=== PATIENT | female | born 1965 | race Caucasian/White ===

== ENCOUNTER 2021-05-08 15:25 | Emergency (ER) | payer BC, OTHER ==
[~2021-05-08] VITALS: Ht 165 cm; Wt 55.0 kg
[2021-05-08] MEDS ORDERED: LACTATED RINGERS 1,000 ML IV SCH (15:45)
--- NOTE | 2021-05-08 15:47 | ED General ---
General Stated Complaint: R SIDE PAIN Source of Information: Patient Exam Limitations: No Limitations History of Present Illness Date Seen by Provider: May 08, 2021 Time Seen by Provider: 15:45 Initial Comments To ER with reports of right lower quadrant abdominal pain onset this morning at 5 AM. No nausea or vomiting but has not had an appetite either. Last intake was coffee this morning, no food today. No fevers no chills and she has had 2 normal bowel movements today. She has a history of a "partial bowel obstruction" in the right lower abdomen secondary to a surgical procedure for cervical cancer at [facility] in [place] 10 to 15 years ago. Timing/Duration: 4-6 Hours Severity: Moderate Associated Systoms: No Nausea/Vomiting Allergies and Home Medications Allergies Coded Allergies: No Known Drug Allergies (Unverified , 05/08/21) Patient Home Medication List Home Medication List Reviewed: Yes Review of Systems Review of Systems Constitutional: see HPI EENTM: see HPI Respiratory: no symptoms reported Cardiovascular: no symptoms reported Gastrointestinal: abdominal pain Genitourinary: no symptoms reported Musculoskeletal: no symptoms reported Skin: no symptoms reported Psychiatric/Neurological: No Symptoms Reported Hematologic/Lymphatic: No Symptoms Reported Physical Exam Vital Signs Vital Signs - First Documented 05/08/21 15:30 Temp 36.0 Pulse 129 Resp 16 B/P (MAP) 160/84 (109) Pulse Ox 100 O2 Delivery Room Air Capillary Refill : Height, Weight, BMI Height: '" Weight: lbs. oz. kg; BMI Method: General Appearance: No Apparent Distress, WD/WN, Thin Eyes: Bilateral Eye Normal Inspection, Bilateral Eye PERRL, Bilateral Eye EOMI Neck: Full Range of Motion, Normal Inspection Respiratory: No Accessory Muscle Use, No Respiratory Distress Cardiovascular: Regular Rate, Rhythm, Normal Peripheral Pulses Gastrointestinal: Normal Bowel Sounds, Soft; No Abnormal Bowel Sounds, No Dis tended, No Guarding, No Hepatomegaly; Tenderness Extremity: Normal Capillary Refill, Normal Inspection Neurologic/Psychiatric: Alert, Oriented x3 Skin: Normal Color, Warm/Dry Progress/Results/Core Measures Suspected Sepsis SIRS Temperature: Pulse: Respiratory Rate: Laboratory Tests 05/08/21 15:40: White Blood Count 9.7 Blood Pressure / Mean: Laboratory Tests 05/08/21 15:40: Creatinine 0.84, Platelet Count 269, Total Bilirubin 0.7 Results/Orders Lab Results Laboratory Tests Test 05/08/21 15:40 05/08/21 15:41 Range/Units White Blood Count 9.7 4.3-11.0 10^3/uL Red Blood Count 3.86 3.80-5.11 10^6/uL Hemoglobin 12.3 11.5-16.0 g/dL Hematocrit 37 35-52 % Mean Corpuscular Volume 97 80-99 fL Mean Corpuscular Hemoglobin 32 25-34 pg Mean Corpuscular Hemoglobin Concent 33 32-36 g/dL Red Cell Distribution Width 12.8 10.0-14.5 % Platelet Count 269 130-400 10^3/uL Mean Platelet Volume 9.3 9.0-12.2 fL Immature Granulocyte % (Auto) 0 % Neutrophils (%) (Auto) 83 H 42-75 % Lymphocytes (%) (Auto) 9 L 12-44 % Monocytes (%) (Auto) 6 0-12 % Eosinophils (%) (Auto) 1 0-10 % Basophils (%) (Auto) 1 0-10 % Neutrophils # (Auto) 8.1 H 1.8-7.8 10^3/uL Lymphocytes # (Auto) 0.9 L 1.0-4.0 10^3/uL Monocytes # (Auto) 0.6 0.0-1.0 10^3/uL Eosinophils # (Auto) 0.1 0.0-0.3 10^3/uL Basophils # (Auto) 0.1 0.0-0.1 10^3/uL Immature Granulocyte # (Auto) 0.0 0.0-0.1 10^3/uL Sodium Level 144 135-145 MMOL/L Potassium Level 4.2 3.6-5.0 MMOL/L Chloride Level 107 98-107 MMOL/L Carbon Dioxide Level 29 21-32 MMOL/L Anion Gap 8 5-14 MMOL/L Blood Urea Nitrogen 12 7-18 MG/DL Creatinine 0.84 0.60-1.30 MG/DL Estimat Glomerular Filtration Rate 70 BUN/Creatinine Ratio 14 Glucose Level 105 70-105 MG/DL Calcium Level 9.6 8.5-10.1 MG/DL Corrected Calcium 9.5 8.5-10.1 MG/DL Total Bilirubin 0.7 0.1-1.0 MG/DL Aspartate Amino Transf (AST/SGOT) 13 5-34 U/L Alanine Aminotransferase (ALT/SGPT) 13 0-55 U/L Alkaline Phosphatase 57 40-136 U/L Total Protein 6.7 6.4-8.2 GM/DL Albumin 4.1 3.2-4.5 GM/DL Urine Color YELLOW Urine Clarity CLEAR Urine pH 5.0 5-9 Urine Specific [place] 1.010 L 1.016-1.022 Urine Protein NEGATIVE NEGATIVE Urine Glucose (UA) NEGATIVE NEGATIVE Urine Ketones NEGATIVE NEGATIVE Urine Nitrite NEGATIVE NEGATIVE Urine Bilirubin NEGATIVE NEGATIVE Urine Urobilinogen 0.2 < = 1.0 MG/DL Urine Leukocyte Esterase NEGATIVE NEGATIVE Urine RBC (Auto) TRACE-I NEGATIVE Urine RBC 0-2 /HPF Urine WBC NONE /HPF Urine Crystals PRESENT H /LPF Urine Amorphous Sediment RARE SCOTT URATES H /LPF Urine Bacteria NEGATIVE /HPF Urine Casts NONE /LPF Urine Mucus NEGATIVE /LPF Urine Culture Indicated NO My Orders Orders - NATALEE ALVAERNGA LINEMAN APPRENTICE Cbc With Automated Diff (05/08/21 15:41) Comprehensive Metabolic Panel (05/08/21 15:41) Ed Iv/Invasive Line Start (05/08/21 15:41) Ct Abd/Pelv W (Appendicitis) (05/08/21 15:41) Lactated Ringers (Lr 1000 Ml Iv Solution (05/08/21 15:45) Ua Culture If Indicated (05/08/21 15:43) Iohexol Injection (Omnipaque 350 Mg/Ml 1 (05/08/21 16:15) Received Contrast (Hold Metformin- Contr (05/08/21 16:15) Sodium Chloride Flush (Catheter Flush Sy (05/08/21 16:15) Ns (Ivpb) (Sodium Chloride 0.9% Ivpb Bag (05/08/21 16:15) Ketorolac Injection (Toradol Injection) (05/08/21 17:00) Medications Given in ED Current Medications Medications Dose Ordered Sig/Mely Route Start Time Stop Time Status Last Admin Dose Admin Iohexol 100 ml ONCE ONCE IV 05/08/21 16:15 05/08/21 16:16 DC 05/08/21 16:43 69 ML Ketorolac Tromethamine 15 mg ONCE ONCE IVP 05/08/21 17:00 05/08/21 17:01 DC 05/08/21 17:15 15 MG Sodium Chloride 10 ml NEEDED PRN IV 05/08/21 16:15 05/08/21 16:43 10 ML Sodium Chloride 100 ml ONCE ONCE IV 05/08/21 16:15 05/08/21 16:16 DC 05/08/21 16:43 80 ML Vital Signs/I&O 05/08/21 15:30 Temp 36.0 Pulse 129 Resp 16 B/P (MAP) 160/84 (109) Pulse Ox 100 O2 Delivery Room Air Capillary Refill : Departure Communication (Admissions) NAME: LIZ GONZALEZ [facility] REC#: [id number] PT STATUS: REG ER : 1965 PHYSICIAN: NATALEE ALVARENGA LINEMAN APPRENTICE ADMIT DATE: 05/08/21/ER Signed Date of Exam:05/08/21 CT ABD/PELV W (APPENDICITIS) EXAMINATION: CT abdomen and pelvis with intravenous contrast. TECHNIQUE: Multiple contiguous axial images were obtained through the abdomen and pelvis after the uneventful administration of intravenous contrast. All CT scans use one or more of the following dose optimizing techniques: automated exposure control, MA and/or KvP adjustment based on patient size and exam type or iterative reconstruction. HISTORY: Right lower quadrant pain. COMPARISON: None available. FINDINGS: Lung bases: The lung bases are clear. Solid organs: The liver is normal without focal lesion. The gallbladder is surgically absent. Mild biliary ductal dilatation is likely secondary to reservoir effect from prior cholecystectomy. Pancreas is normal. Spleen is normal. Adrenal glands are normal. The kidneys are normal without hydronephrosis. Bowel: The stomach and small bowel are normal without obstruction. The colon and appendix are normal. Peritoneum: There is a mild amount of free fluid within the pelvis. No suspicious lymphadenopathy. Vasculature: Calcification of the aorta without aneurysm. Musculoskeletal: Degenerative changes of the spine without suspicious osseous lesion or compression fracture. Pelvis: The uterus is surgically absent. No adnexal mass. The urinary bladder is normal. IMPRESSION: 1. No acute abnormality in the abdomen or pelvis. Normal-appearing appendix. 2. There is a mild amount of nonspecific free fluid in the pelvis. Dictated by: Dictated on workstation # [id number] Dict: 05/08/21 1644 Trans: 05/08/21 1653 [id number] Interpreted by: ELMA DAS DO Electronically signed by: ELMA DAS DO 05/08/21 1653 Impression Primary Impression: RLQ abdominal pain Disposition: HOME, SELF-CARE Condition: Stable Departure-Patient Inst. Decision time for Depature: 17:23 Referrals: NO,LOCAL PHYSICIAN (PCP/Family) Primary Care Physician Patient Instructions: No Instuctions Given Add. Discharge Instructions: The cause of your abdominal pain is not entirely clear though we can say with confidence that your appendix is normal and there is no bowel obstruction. There is a small amount of free fluid in the right lower part of the abdomen. This is a nonspecific finding but is often seen with some inflammation. In your case this inflammation is most likely centered around these loops of small bowel in the lower abdomen likely from an enteritis. In the next 24 to 48 hours try to stick to a clear liquid diet. Reasons to come back are high fever, intolerable pain or uncontrollable vomiting. NATALEE ALVARENGA LINEMAN APPRENTICE May 08, 2021 15:47
[2021-05-08 15:51] LABS: BASOPHILS # (AUTO) 0.1 10^3/uL (0.0-0.1); BASOPHILS % (AUTO) 1 % (0-10); EOSINOPHILS # (AUTO) 0.1 10^3/uL (0.0-0.3); EOSINOPHILS % (AUTO) 1 % (0-10); HEMATOCRIT 37 % (35-52); HEMOGLOBIN 12.3 g/dL (11.5-16.0); LYMPHOCYTES # (AUTO) 0.9 10^3/uL (1.0-4.0); LYMPHOCYTES % (AUTO) 9 % (12-44); MEAN CORPUSCULAR HEMOGLOBIN 32 pg (25-34); MEAN CORPUSCULAR HGB CONC 33 g/dL (32-36); MEAN CORPUSCULAR VOLUME 97 fL (80-99); MEAN PLATELET VOLUME 9.3 fL (9.0-12.2); MONOCYTES # (AUTO) 0.6 10^3/uL (0.0-1.0); MONOCYTES % (AUTO) 6 % (0-12); NEUTROPHILS # (AUTO) 8.1 10^3/uL (1.8-7.8); NEUTROPHILS % (AUTO) 83 % (42-75); PLATELET COUNT 269 10^3/uL (130-400); WHITE BLOOD COUNT 9.7 10^3/uL (4.3-11.0)
[2021-05-08 16:00] LABS: BILIRUBIN,URINE NEGATIVE (NEGATIVE); CLARITY,URINE CLEAR; COLOR,URINE YELLOW; GLUCOSE, URINE (UA) NEGATIVE (NEGATIVE); KETONES,URINE NEGATIVE (NEGATIVE); LEUKOCYTE ESTERASE ,URINE NEGATIVE (NEGATIVE); NITRITE,URINE NEGATIVE (NEGATIVE); PROTEIN,URINE NEGATIVE (NEGATIVE)
[2021-05-08 16:01] LABS: ALBUMIN 4.1 GM/DL (3.2-4.5); POTASSIUM 4.2 MMOL/L (3.6-5.0)
[2021-05-08 16:02] LABS: CALCIUM 9.6 MG/DL (8.5-10.1)
[2021-05-08 16:03] LABS: TOTAL PROTEIN 6.7 GM/DL (6.4-8.2)
[2021-05-08 16:05] LABS: BILIRUBIN,TOTAL 0.7 MG/DL (0.1-1.0)
[2021-05-08 16:07] LABS: CREATININE SERUM 0.84 MG/DL (0.60-1.30)
[2021-05-08] MEDS ORDERED: CATHETER FLUSH 10 ML SYR IV PRN (16:15)
[2021-05-08] MEDS ORDERED: NS 100 ML (IVPB) BAG IV ONE (16:15)
[2021-05-08] MEDS ORDERED: IOHEXOL 350 MG/ML 100 ML (OMNIPAQUE 350) VIAL IV ONE (16:15)
[2021-05-08] MEDS ORDERED: HOLD METFORMIN - RECEIVED CONTRAST 20 ML VIAL IV SCH (16:15)
[2021-05-08 16:30] LABS: AMORPHOUS SEDIMENT,UR RARE AMOR URATES /LPF; BACTERIA,URINE NEGATIVE /HPF; RBC,URINE 0-2 /HPF
--- NOTE | 2021-05-08 16:54 | Diagnostic Imaging Report ---
EXAMINATION: CT abdomen and pelvis with intravenous contrast. TECHNIQUE: Multiple contiguous axial images were obtained through the abdomen and pelvis after the uneventful administration of intravenous contrast. All CT scans use one or more of the following dose optimizing techniques: automated exposure control, MA and/or KvP adjustment based on patient size and exam type or iterative reconstruction. HISTORY: Right lower quadrant pain. COMPARISON: None available. FINDINGS: Lung bases: The lung bases are clear. Solid organs: The liver is normal without focal lesion. The gallbladder is surgically absent. Mild biliary ductal dilatation is likely secondary to reservoir effect from prior cholecystectomy. Pancreas is normal. Spleen is normal. Adrenal glands are normal. The kidneys are normal without hydronephrosis. Bowel: The stomach and small bowel are normal without obstruction. The colon and appendix are normal. Peritoneum: There is a mild amount of free fluid within the pelvis. No suspicious lymphadenopathy. Vasculature: Calcification of the aorta without aneurysm. Musculoskeletal: Degenerative changes of the spine without suspicious osseous lesion or compression fracture. Pelvis: The uterus is surgically absent. No adnexal mass. The urinary bladder is normal. IMPRESSION: 1. No acute abnormality in the abdomen or pelvis. Normal-appearing appendix. 2. There is a mild amount of nonspecific free fluid in the pelvis. Dictated by: Dictated on workstation # [id number]
[2021-05-08] MEDS ORDERED: KETOROLAC 30 MG/ML VIAL IVP ONE (17:00)
[2021-05-08 17:27] VITALS: BP 136/72
== END 2021-05-08 17:27 | disposition home or self-care (01) ==
LOC: ER 15:28
DX: R10.31 Right lower quadrant pain (principal)
CPT/HCPCS: 36415; 74177; 80053; 81000; 85025